=== PATIENT | female | born 1960 | race Hispanic/Latino ===

== ENCOUNTER → 2024-09-08 | Outpatient (CLI) | payer SELFPAY ==
[~2024-09-08] MED LIST: DiphenhydrAMINE HCL 50 MG/ML VIAL ONE; IOHEXOL 350 MG/ML 100ML INFUS..BTL IV ONE; Solu-medROL 125MG VIAL ONE; metoPROLOL tartRATE 1 MG/ML 5ML VIAL IV ONE
--- NOTE | 2024-09-08 14:07 | HMCIMG ---
CT OF THE CHEST WITH CONTRAST- CT Cardiac Angio co-interpretation This is done as part of the CT cardiac angiogram study. The interpretation of the coronary arteries will be done by subscription agent in a separate report. History: over-read Comparison: none CT Dose Index (CTDI): 77.90 mGy Dose Length Product (DLP): 493.40 total mGy PROTOCOL: Examination is done at 2.5 millimeter volumetric acquisition after contrast administration with Isovue 370, 100 cc IV, without complications. Photography is done at 5 millimeter thick intervals for the thorax. The examination begins above the heart and therefore the lung apices are incompletely included. The rest of the left lung is included but the right lung is only included up to its middle third. The periphery of the right lung is not included in the study. FINDINGS: The visualized part of the airway is preserved. The bony and soft tissue structures of the chest wall are unremarkable. The aorta is unremarkable. No mediastinal lymphadenopathy is seen. The lung windows demonstrate no worrisome pulmonary nodules, masses or infiltrates. There is no evidence of pulmonary embolism in the visualized lung segments. The upper abdominal views are unremarkable. Impression: No significant abnormalities identified.
== END | disposition home or self-care (01) ==
LOC: RAH 08-16 09:00
PROVIDERS: ATTEND Internal Medicine Cardiovascular Disease
DX: I47.10 Supraventricular tachycardia, unspecified (principal)
CPT/HCPCS: 75574; 76937; J2919; J1200; Q9967; J3490